=== PATIENT | female | born 1995 | race Caucasian/White ===

== ENCOUNTER 2017-03-16 10:48 | Emergency (ER) | payer BC ==
[~2017-03-16] VITALS: Ht 177.8 cm; Wt 76.0 kg
[2017-03-16] MEDS ORDERED: LIDODERM 5% P1 PATCH TD (11:49)
[2017-03-16] MEDS ORDERED: MOTRIN800 MG PO (11:49)
[2017-03-16] MEDS ORDERED: MECLIZINE HCL25 MG PO (11:49)
[2017-03-16] MEDS ORDERED: VALIUM5 MG PO (11:49)
[2017-03-16 12:26] VITALS: BP 126/74
== END 2017-03-16 12:27 | disposition home or self-care (01) ==
LOC: EME 10:48
DX: R42 Dizziness and giddiness (principal); S16.1XXA Strain of muscle, fascia and tendon at neck level, initial encounter; M62.838 Other muscle spasm; X50.1XXA Overexertion from prolonged static or awkward postures, initial encounter; M41.9 Scoliosis, unspecified; F32.9 Major depressive disorder, single episode, unspecified
CPT/HCPCS: 99281; 99284